=== PATIENT | male | born 1950 | race Caucasian/White ===

== ENCOUNTER 2016-10-30 20:08 | Emergency (ER) | payer MEDICARE ==
[~2016-10-30] VITALS: Ht 177.8 cm; Wt 99.6 kg
[~2016-10-30 20:08] MED LIST: ASPIR-TRIN325 MG OR; CENTRUM SILVER PO; FISH OIL1000 MG PO; HEALTHY EYES PO; VICODIN1 TAB OR; VITAMIN B-12250 MCG PO
[2016-10-30] MEDS ORDERED: LIPITOR20 MG PO (20:29)
[2016-10-30] MEDS ORDERED: ATORVASTATIN CA40 MG PO (20:32)
[2016-10-30 20:49] LABS: URINE BILIRUBIN - DIPSTICK NEGATIVE (NEGATIVE); URINE BLOOD DIPSTICK NEGATIVE (NEGATIVE); URINE CLARITY CLEAR; URINE COLOR YELLOW; URINE GLUCOSE - DIPSTICK NEGATIVE (NEGATIVE); URINE KETONE NEGATIVE (NEGATIVE); URINE LEUK ESTERASE NEGATIVE (NEGATIVE); URINE NITRITE - DIPSTICK NEGATIVE (Negative); URINE PH 6.5 (4.5-8.0); URINE PROTEIN - DIPSTICK NEGATIVE (NEG-TRACE); URINE SPECIFIC GRAVITY <=1.005; URINE UROBILINOGEN - DIPSTICK 0.2 E.U./dL (0.2)
[2016-10-30] MEDS ORDERED: ULTRAM50 M1 PO (21:40)
[2016-10-30] MEDS ORDERED: FLEXERIL PO (21:40)
[2016-10-30 22:00] VITALS: BP 103/64
== END 2016-10-30 22:00 | disposition home or self-care (01) ==
LOC: ED 20:08
PROVIDERS: Emergency Medicine
DX: S39.012A Strain of muscle, fascia and tendon of lower back, initial encounter (principal); M47.817 Spondylosis without myelopathy or radiculopathy, lumbosacral region; E78.5 Hyperlipidemia, unspecified; X58.XXXA Exposure to other specified factors, initial encounter

== ENCOUNTER 2021-01-31 19:31 | Emergency (ER) | payer MEDICARE ==
[~2021-01-31] VITALS: Ht 177.8 cm; Wt 95.0 kg
[~2021-01-31 19:31] MED LIST changes: +ATORVASTATIN CA40 MG PO; +FLEXERIL PO; +LIPITOR20 MG PO; +ULTRAM50 M1 PO
[2021-01-31 20:44] LABS: HEMATOCRIT 37.3 % (39.0-50.0); HEMOGLOBIN 12.8 g/dl (14.0-18.0); IMMATURE GRANULOCYTES 0.4 % (0.0-5.0); MEAN CELL VOLUME 94.7 fL CALC (80.0-100.0); MEAN CORPUSCULAR HGB 32.5 pG CALC (26.0-32.0); MEAN CORPUSCULAR HGB CONC 34.3 g/dL CAL (32.0-36.0); NEUT# 3.74 thou/uL (1.82-7.42); RED BLOOD COUNT 3.94 mill/uL (4.70-6.10); RED CELL DISTRI WIDTH 12.5 % (11.5-15.5)
[2021-01-31 20:55] LABS: ALBUMIN 3.9 g/dL (3.2-5.0); ALKALINE PHOSPHATASE 57 u/l (38-126); ANION GAP 9 (6-22 (CALC)); BILIRUBIN, TOTAL 0.5 mg/dL (0.0-1.4); BUN 15 mg/dL (8-23); BUN/CREATININE RATIO 14 (12-20 (CALC)); CARBON DIOXIDE 25 mmol/l (22-30); CHLORIDE 105 mmol/l (95-108); CREATININE 1.1 mg/dL (0.7-1.3); GFR > 60 ML/MIN (>=60 (CALC)); GFR FOR AFR.AMER. > 60 ML/MIN (>=60 (CALC)); SGOT/AST 24 u/l (19-48); SODIUM 135 mmol/l (137-146); TOTAL PROTEIN 6.7 g/dL (6.3-8.2)
[2021-01-31 20:57] LABS: URINE BILIRUBIN - DIPSTICK NEGATIVE (NEGATIVE); URINE BLOOD DIPSTICK LARGE (NEGATIVE); URINE COLOR YELLOW; URINE GLUCOSE - DIPSTICK NEGATIVE (NEGATIVE); URINE KETONE NEGATIVE (NEGATIVE); URINE LEUK ESTERASE NEGATIVE (NEGATIVE); URINE PROTEIN - DIPSTICK NEGATIVE (NEG-TRACE); URINE UROBILINOGEN - DIPSTICK 0.2 E.U./dL (0.2)
[2021-01-31 21:03] LABS: URINE NITRITE - DIPSTICK NEGATIVE (Negative); URINE RBC 25-50 RBC/hpf (0-5)
[2021-01-31] MEDS ORDERED: PYRIDIUM200 MG PO (22:33)
[2021-01-31] MEDS ORDERED: KEFLEX500 MG PO (22:33)
[2021-01-31 22:54] VITALS: BP 153/92
[2021-02-03] MEDS ORDERED: NAPROXEN500 MG PO (05:20)
== END 2021-01-31 22:56 | disposition home or self-care (01) ==
LOC: ED 19:31
PROVIDERS: Emergency Medicine
DX: N30.01 Acute cystitis with hematuria (principal); K63.89 Other specified diseases of intestine
CPT/HCPCS: Q9967

== ENCOUNTER 2021-02-02 18:49 | Emergency (ER) | payer MEDICARE ==
[~2021-02-02] VITALS: Ht 177.8 cm; Wt 96.0 kg
[~2021-02-02 18:49] MED LIST changes: +KEFLEX500 MG PO; +PYRIDIUM200 MG PO
[2021-02-02 20:26] LABS: HEMATOCRIT 40.8 % (39.0-50.0); HEMOGLOBIN 13.8 g/dl (14.0-18.0); IMMATURE GRANULOCYTES 0.2 % (0.0-5.0); MEAN CELL VOLUME 95.1 fL CALC (80.0-100.0); MEAN CORPUSCULAR HGB 32.2 pG CALC (26.0-32.0); MEAN CORPUSCULAR HGB CONC 33.8 g/dL CAL (32.0-36.0); NEUT# 4.61 thou/uL (1.82-7.42); RED BLOOD COUNT 4.29 mill/uL (4.70-6.10); RED CELL DISTRI WIDTH 12.6 % (11.5-15.5)
[2021-02-02 20:38] LABS: ALBUMIN 4.4 g/dL (3.2-5.0); ALKALINE PHOSPHATASE 61 u/l (38-126); ANION GAP 11 (6-22 (CALC)); BILIRUBIN, TOTAL 0.5 mg/dL (0.0-1.4); BUN 15 mg/dL (8-23); BUN/CREATININE RATIO 12 (12-20 (CALC)); C-REACTIVE PROTEIN < 0.5 mg/dL (0-0.9); CARBON DIOXIDE 27 mmol/l (22-30); CHLORIDE 104 mmol/l (95-108); CREATININE 1.3 mg/dL (0.7-1.3); GFR 55 ML/MIN (>=60 (CALC)); GFR FOR AFR.AMER. > 60 ML/MIN (>=60 (CALC)); SGOT/AST 26 u/l (19-48); SODIUM 137 mmol/l (137-146); TOTAL PROTEIN 7.4 g/dL (6.3-8.2)
[2021-02-02] MEDS ORDERED: GENTAMICIN SULF5 ML OS (22:29)
[2021-02-02 22:40] VITALS: BP 150/80
[2021-02-03] MEDS ORDERED: NAPROXEN500 MG PO (05:20)
== END 2021-02-02 22:39 | disposition home or self-care (01) ==
LOC: ED 18:49
DX: R51.9 Headache, unspecified (principal); H57.12 Ocular pain, left eye; H53.2 Diplopia

== ENCOUNTER 2021-05-26 07:50 | Day surgery (SDC) | payer MEDICARE ==
[~2021-05-26 07:50] MED LIST changes: +B121000 MC1 PO; +CENTRUM SILVER1 TA2 PO; +GENTAMICIN SULF5 ML OS; +NAPROXEN500 MG PO; +SAW PALMETTO1 CAP PO
[2021-05-26 11:35] VITALS: BP 133/76
== END 2021-05-26 12:00 | disposition home or self-care (01) ==
LOC: ORM 07:50
PROVIDERS: ATTEND Urology
PROC: 0TBB8ZX Excision of Bladder, Via Natural or Artificial Opening Endoscopic, Diagnostic (ICD-10-PCS; principal; 2021-05-26)
DX: C67.4 Malignant neoplasm of posterior wall of bladder (principal); C79.89 Secondary malignant neoplasm of other specified sites; E78.2 Mixed hyperlipidemia; Z87.891 Personal history of nicotine dependence
CPT/HCPCS: J1100; J1956

== ENCOUNTER 2021-09-29 17:15 | Emergency (ER) | payer MEDICARE, MEDICAID ==
[~2021-09-29] VITALS: Ht 177.8 cm; Wt 79.5 kg
[2021-09-29 17:31] VITALS: BP 111/69
[2021-09-29 17:54] LABS: HEMATOCRIT 37.1 % (39.0-50.0); HEMOGLOBIN 12.3 g/dl (14.0-18.0); IMMATURE GRANULOCYTES 0.2 % (0.0-5.0); MEAN CELL VOLUME 91.2 fL CALC (80.0-100.0); MEAN CORPUSCULAR HGB 30.2 pG CALC (26.0-32.0); MEAN CORPUSCULAR HGB CONC 33.2 g/dL CAL (32.0-36.0); NEUT# 3.86 thou/uL (1.82-7.42); RED BLOOD COUNT 4.07 mill/uL (4.70-6.10); RED CELL DISTRI WIDTH 14.8 % (11.5-15.5)
[2021-09-29 18:10] LABS: ALBUMIN 3.7 g/dL (3.2-5.0); ALKALINE PHOSPHATASE 64 u/l (38-126); ANION GAP 13 (6-22 (CALC)); BILIRUBIN, TOTAL 0.2 mg/dL (0.0-1.4); BUN 19 mg/dL (8-23); BUN/CREATININE RATIO 15 (12-20 (CALC)); CARBON DIOXIDE 18 mmol/l (22-30); CHLORIDE 112 mmol/l (95-108); CREATININE 1.2 mg/dL (0.7-1.3); GFR 60 ML/MIN (>=60 (CALC)); GFR FOR AFR.AMER. > 60 ML/MIN (>=60 (CALC)); POTASSIUM 3.8 mmol/l (3.5-5.1); SGOT/AST 20 u/l (19-48); SODIUM 139 mmol/l (137-146); TOTAL PROTEIN 6.9 g/dL (6.3-8.2)
[2021-09-29 18:31] LABS: URINE BILIRUBIN - DIPSTICK NEGATIVE (NEGATIVE); URINE BLOOD DIPSTICK TRACE-INTACT (NEGATIVE); URINE COLOR YELLOW; URINE GLUCOSE - DIPSTICK NEGATIVE (NEGATIVE); URINE KETONE NEGATIVE (NEGATIVE); URINE PROTEIN - DIPSTICK NEGATIVE (NEG-TRACE); URINE UROBILINOGEN - DIPSTICK 0.2 E.U./dL (0.2)
[2021-09-29 18:32] LABS: URINE LEUK ESTERASE MODERATE (NEGATIVE); URINE NITRITE - DIPSTICK POSITIVE (Negative)
[2021-09-29 18:39] LABS: URINE WBC 50-100 WBC/hpf (0-5)
[2021-09-29 18:40] LABS: URINE MUCUS FEW hpf (NONE-FEW)
[2021-09-29 19:00] VITALS: BP 114/67
[2021-09-29] MEDS ORDERED: LEVAQUIN750 M1 PO (19:00)
[2021-09-29 19:28] VITALS: BP 114/67
== END 2021-09-29 19:31 | disposition home or self-care (01) ==
LOC: ED 17:15
PROVIDERS: Nurse Practitioner
DX: N39.0 Urinary tract infection, site not specified (principal); Z98.890 Other specified postprocedural states
CPT/HCPCS: Q9967